=== PATIENT | male | born 2000 | race Caucasian/White ===

== ENCOUNTER 2019-10-03 10:26 | Emergency (ER) | payer OTHER ==
[2019-10-03 10:49] VITALS: BP 107/64
--- NOTE | 2019-10-03 11:02 | UC ---
Throat Pain/Nasal Siva HPI - HPI Summary HPI Summary: Sore throat x2 days, post nasal drip, painful swallowing. Unsure of fever. Denies cough, chest congestion. - History of Current Complaint Chief Complaint: UCGeneralIllness Stated Complaint: ST Time Seen by Provider: 10/03/19 10:54 Hx Obtained From: Patient Onset/Duration: Sudden Onset Severity: Moderate Pain Intensity: 6 Associated Signs & Symptoms: Positive: Dysphagia, Sinus Discomfort - Allergies/Home Medications Allergies/Adverse Reactions: Allergies Allergy/AdvReac Type Severity Reaction Status Date / Time No Known Allergies Allergy Verified 10/03/19 10:44 Home Medications: Home Medications D-Methorphan/PE/Acetaminophen [Day Time Cold-Flu Liquid] 30 ml PO ONCE 10/03/19 [History Confirmed 10/03/19] PMH/Surg Hx/FS Hx/Imm Hx Previously Healthy: Yes - Surgical History Surgical History: None - Family History Known Family History: Positive: Hypertension - Social History Alcohol Use: Weekly Substance Use Type: None Smoking Status (MU): Never Smoked Tobacco Review of Systems All Other Systems Reviewed And Are Negative: Yes Constitutional: Positive: Fatigue ENT: Positive: Sore Throat, Ear Ache, Nasal Discharge, Sinus Congestion Respiratory: Positive: Cough Is Patient Immunocompromised?: No Physical Exam Triage Information Reviewed: Yes Appearance: Well-Nourished, Ill-Appearing, Pain Distress Vital Signs: Initial Vital Signs Temp 97.4 F 10/03/19 10:45 Pulse 87 10/03/19 10:45 Resp 14 10/03/19 10:45 BP 107/64 10/03/19 10:45 Pulse Ox 98 10/03/19 10:45 Vital Signs Reviewed: Yes Eye Exam: Normal ENT: Positive: Pharyngeal erythema, Nasal congestion, TM bulging, Tonsillar swelling, Tonsillar exudate - large amount Dental Exam: Normal Neck exam: Normal Respiratory Exam: Normal Respiratory: Positive: Chest non-tender, Lungs clear, Normal breath sounds Cardiovascular Exam: Normal Abdominal Exam: Normal Bowel Sounds: Positive: Present Musculoskeletal Exam: Normal Neurological Exam: Normal Psychological Exam: Normal Skin Exam: Normal Throat Pain/Nasal Course/Dx - Course Course Of Treatment: hx obtained, exam performed, meds reviewed, rapid strep was negative, but treated based on clinical presentation - Differential Dx/Diagnosis Differential Diagnosis/HQI/PQRI: Otitis Media, Sinusitis, Tonsillitis, URI Provider Diagnosis: Pharyngitis Discharge ED - Sign-Out/Discharge Documenting (check all that apply): Patient Departure All imaging exams completed and their final reports reviewed: No Studies - Discharge Plan Condition: Stable Disposition: HOME Prescriptions: Amoxicillin PO (*) [Amoxicillin 500 MG CAP*] 500 mg PO Q12H #20 cap Patient Education Materials: Pharyngitis (ED) Referrals: No Primary Care Phys,NOPCP [Primary Care Provider] - Additional Instructions: 1. take the medication as prescribed. 2. Salt water gargles multiple times a day 3. Increase fluids and get plenty of rest. 4. FOllow up if not improving. - Billing Disposition and Condition Condition: STABLE Disposition: Home
== END 2019-10-03 11:10 | disposition home or self-care (01) ==
LOC: UCCORT 10:26
DX: J02.9 Acute pharyngitis, unspecified (principal); R09.82 Postnasal drip; R09.81 Nasal congestion; R09.89 Other specified symptoms and signs involving the circulatory and respiratory systems; H92.09 Otalgia, unspecified ear; H73.899 Other specified disorders of tympanic membrane, unspecified ear
CPT/HCPCS: 87651; 99202; G0463